=== PATIENT | male | born 1950 | race Caucasian/White ===

== ENCOUNTER → 2017-07-15 | Outpatient (CLI) | payer MEDICARE, OTHER ==
[~2017-07-15] MED LIST: ASPI-1471 PO; ATEN50TA36 PO; BEN20 PO; CELE-1 PO; CHOL100059 PO; FEN145 PO; GABA-549 PO; HYDR-2966 PO; LOSA100T67 PO; METF-420 PO; MULT1CAP59 PO; OMEG-11 PO; OMEP-114 PO; OMEP-125 PO; RANI-324 PO; SIMV-42 PO; SIMV-54 PO; TRAM-420 PO
[2017-07-15 08:34] LABS: LDL CHOLESTEROL 70 mg/dl
== END ==
LOC: LAB 07:26
PROVIDERS: ATTEND Internal Medicine
DX: I12.9 Hypertensive chronic kidney disease with stage 1 through stage 4 chronic kidney disease, or unspecified chronic kidney disease (principal); N18.3 Chronic kidney disease, stage 3 (moderate); E11.42 Type 2 diabetes mellitus with diabetic polyneuropathy; E78.2 Mixed hyperlipidemia
CPT/HCPCS: 36415; 82040; 82247; 82310; 82374; 82435; 82465; 82565; 82947; 83036; 83718; 84075; 84132; 84155; 84295; 84450; 84460; 84478; 84520

== ENCOUNTER → 2017-10-20 | Outpatient (CLI) | payer MEDICARE, OTHER ==
[2017-10-20 07:55] LABS: PLATELET COUNT, AUTOMATED 162 K/uL (150-450)
[2017-10-20 09:58] LABS: LDL CHOLESTEROL 62 mg/dl
== END ==
LOC: LAB 07:43
PROVIDERS: ATTEND Internal Medicine
DX: I12.9 Hypertensive chronic kidney disease with stage 1 through stage 4 chronic kidney disease, or unspecified chronic kidney disease (principal); E11.42 Type 2 diabetes mellitus with diabetic polyneuropathy; E78.2 Mixed hyperlipidemia; N18.3 Chronic kidney disease, stage 3 (moderate)
CPT/HCPCS: 36415; 82040; 82247; 82310; 82374; 82435; 82465; 82565; 82947; 83036; 83718; 84075; 84132; 84155; 84295; 84450; 84460; 84478; 84520; 85025

== ENCOUNTER 2018-01-07 02:34 | Day surgery (SDC) | payer MEDICARE, OTHER ==
[~2018-01-07] VITALS: Ht 177.8 cm; Wt 82.6 kg
[~2018-01-07 02:34] MED LIST changes: +ATEN-1 PO; +GABA-547 PO; +GOLYTE PO; -METF-420 PO; +METF-421 PO; +METF500T4 PO; +PNEU0.5D3 IM; -RANI-324 PO; +RANI-366 PO
[2018-01-07] MEDS ORDERED: PROPOFOL EMUL(*) 10MG/ML 20 ML 20 ML ONE ×2 (07:19→09:16)
[2018-01-07 07:22] VITALS: BP 132/86
[2018-01-07] MEDS ORDERED: LIDOCAINE/SOD BICARB 8.4% SYR ID ONE (07:45)
[2018-01-07] MEDS ORDERED: NORMOSOL R SOLN(*) 1000 ML BAG 1,000 ML IV PRN (07:45)
[2018-01-07 09:50] VITALS: BP 112/68
[2018-01-07 10:01] VITALS: BP 112/71
--- NOTE | 2018-01-07 10:01 | Short(Outpt) Discharge Summary ---
Discharge Summary Reason for Hosp/Final Diag: (1) History of colon polyps Status: Chronic Hospital Course & Plan: Colonoscopy with polypectomy x 6 completed without problems. (2) Screening for colon cancer Status: Chronic Departure Discharge to: Home, Self Care Discharge Instructions Home Meds Active Scripts Peg/Electrolytes (GOLYTELY SOLUTION) 4,000 Ml Soln, 1 GAL PO ONCE, #1 GAL 0 Refills Prov:GURJIT BLANC MD 11/18/17 Metformin Hcl (METFORMIN HCL ER) 500 Mg Tab.er.24, 1 TAB PO BID, #180 TAB 3 Refills Prov:GURJIT BLANC MD 11/18/17 Tramadol Hcl (TRAMADOL HCL) 50 Mg Tablet, 50 MG PO BID Y for PAIN, #90 TAB 1 Refill Prov:LU BERNABE MD 07/15/17 Losartan Potassium (LOSARTAN POTASSIUM) 100 Mg Tablet, 100 MG PO QDAY, #90 TAB 4 Refills Prov:LU BERNABE MD 06/18/17 Simvastatin (SIMVASTATIN) 40 Mg Tablet, 40 MG PO HS, #90 TAB 4 Refills Prov:LU BERNABE MD 06/18/17 Reported Medications Atenolol (ATENOLOL) 50 Mg Tablet, 1 TAB PO QDAY, TAB 12/31/17 Multivitamin (MULTIVITAMINS) 1 Each Capsule, 1 EACH PO QDAY, CAPSULE 02/14/17 Aspirin (ASPIR 81) 81 Mg Tablet.dr, 1 TAB PO QDAY, TAB 02/14/17 Discontinued Scripts Atenolol (TENORMIN) 50 Mg Tablet, 1 TAB PO QDAY, #90 TAB 4 Refills Prov:LU BERNABE MD 06/18/17 Diet: Regular Activity: As Tolerated Special Instructions: Your colonoscopy was completed without problems and your prep was excellent (Good Job!!). I removed 6 small polyps from your colon and they were sent to pathology. My office will call you in the next week and let you know what the polyps are and when your next colonoscopy should be (either 3 years or 5 years depending on the path results). Copies to: LU BERNABE MD, JOHN A MD Jan 07, 2018 10:01
[2018-01-07 10:15] VITALS: BP 107/66
[2018-01-07 10:17] VITALS: BP 110/68
== END 2018-01-07 10:32 | disposition home or self-care (01) ==
LOC: OR 02:34
PROVIDERS: ATTEND Surgery
DX: Z12.11 Encounter for screening for malignant neoplasm of colon (principal); D12.2 Benign neoplasm of ascending colon; D12.5 Benign neoplasm of sigmoid colon; D12.3 Benign neoplasm of transverse colon; K62.1 Rectal polyp; Z86.010 Personal history of colon polyps; E11.9 Type 2 diabetes mellitus without complications
CPT/HCPCS: 00811; 36416; 45385; 82948; 88305; J2704

== ENCOUNTER → 2018-02-13 | Outpatient (CLI) | payer MEDICARE, OTHER ==
[2018-02-13 09:16] LABS: PLATELET COUNT, AUTOMATED 161 K/uL (150-450)
[2018-02-13 10:04] LABS: LDL CHOLESTEROL 65 mg/dl
== END ==
LOC: LAB 08:51
PROVIDERS: ATTEND Internal Medicine
DX: E11.9 Type 2 diabetes mellitus without complications (principal); N18.9 Chronic kidney disease, unspecified; D64.9 Anemia, unspecified; E78.5 Hyperlipidemia, unspecified
CPT/HCPCS: 36415; 81001; 82040; 82247; 82310; 82374; 82435; 82465; 82565; 82728; 82947; 83036; 83540; 83550; 83718; 84075; 84132; 84155; 84295; 84443; 84450; 84460; 84478; 84520; 85025

== ENCOUNTER → 2018-10-14 | Outpatient (CLI) | payer MEDICARE, OTHER ==
[~2018-10-14] MED LIST changes: +ATEN-65 PO; -LOSA100T67 PO; +LOSA100T75 PO; -METF-421 PO; +METF-452 PO; +METH4TAB66 PO
[2018-10-14 08:24] LABS: PLATELET COUNT, AUTOMATED 171 K/uL (150-450)
[2018-10-14 09:15] LABS: LDL CHOLESTEROL 55 mg/dl
== END ==
LOC: LAB 08:03
PROVIDERS: ATTEND Internal Medicine
DX: Z12.5 Encounter for screening for malignant neoplasm of prostate (principal); E78.5 Hyperlipidemia, unspecified; E11.9 Type 2 diabetes mellitus without complications; N18.9 Chronic kidney disease, unspecified; I10 Essential (primary) hypertension
CPT/HCPCS: 36415; 81001; 83036; 83540; 83550; 84443; 85025; G0103; 82040; 82247; 82310; 82374; 82435; 82465; 82565; 82947; 83718; 84075; 84132; 84153; 84155; 84295; 84450; 84460; 84478; 84520